=== PATIENT | female | born 1970 | race Caucasian/White ===

== ENCOUNTER 2022-02-19 11:16 | Outpatient (CLI) | payer OTHER, SELFPAY ==
[2022-02-19 21:46] LABS: Alanine Aminotransferase* 12 U/L (4-35); Albumin* 4.6 g/dL (3.3-5.0); Alkaline Phosphatase* 52 U/L (40-150); Aspartate Amino Transferase* 21 U/L (12-35); Bilirubin Total* 0.5 mg/dL (0.1-1.5); Blood Urea Nitrogen* 17 mg/dL (7-30); Calcium* 9.6 mg/dL (8.4-10.6); Carbon Dioxide* 31 mmol/L (20-32); Chloride* 100 mmol/L (96-114); Creatinine* 0.8 mg/dL (0.5-1.5); Estimated Glomerular Filt Rate 90 ml/min; Glucose* 66 mg/dL (60-115); Percent Iron Saturation 27 % (20-50); Potassium* 4.6 mmol/L (3.6-5.1); Sodium* 138 mmol/L (135-149); Total Iron Binding Capacity 360 ug/dL (265-497); Total Protein* 7.5 g/dL (6.0-8.3)
[2022-02-19 22:04] LABS: Iron* 98 ug/dL (37-170)
[2022-02-19 22:05] LABS: TSH With Reflex to FT4* 0.784 uIU/mL (0.270-4.200)
== END 2022-02-19 11:17 | disposition home or self-care (01) ==
PROVIDERS: PCP Physician Assistant Medical; Visit Provider Physician Assistant Medical
DX: Z01.419 Encounter for gynecological examination (general) (routine) without abnormal findings (principal); D64.9 Anemia, unspecified; R53.83 Other fatigue; D25.9 Leiomyoma of uterus, unspecified
CPT/HCPCS: 80053; 83540; 83550; 84443

== ENCOUNTER 2022-02-26 16:05 | Outpatient (CLI) | payer OTHER, SELFPAY ==
--- NOTE | 2022-02-26 16:00 | CRLHL7_ITS ---
For Patients: As a result of the Century Cures Act, medical imaging exams and procedure reports are released immediately into your electronic medical record. You may view this report before your referring provider. If you have questions, please contact your health care provider. INDICATION: History of fibroid TECHNIQUE: Ultrasound pelvis transabdominal and transvaginal for better assessment or to better visualize the endometrium. Real time sonographic images with Spectral and color Doppler imaging of the ovaries were obtained. COMPARISON: None FINDINGS: Uterus: 12.7 centimeter x 10.4 centimeter. Normal echotexture of the myometrium. 8.3 centimeter x 6.1 centimeter x 6.8 centimeter left uterine fibroid. Endometrium: Transvaginal imaging was performed to better evaluate the endometrium. 1.9 centimeter in thickness. No sign of endometrial mass or fluid. Right ovary: 3.5 centimeter x 1.5 centimeter x 2.2 centimeter. No ovarian or adnexal masses. Normal arterial and venous blood flow. Left ovary: 3.5 centimeter x 2.3 centimeter x 1.7 centimeter. No ovarian or adnexal masses. Normal arterial and venous blood flow. Cul-de-sac: No significant free fluid. IMPRESSION: 0.3 centimeter x 6.1 centimeter x 6.8 centimeter left uterine fibroid. This displaces the endometrium to the right. Medial 1.9 centimeters Dictated by Keshawn Tolentino MD @ 02/26/2022 5:41:36 PM (Electronically Signed)
== END 2022-02-26 16:06 | disposition home or self-care (01) ==
PROVIDERS: PCP Physician Assistant Medical; Visit Provider Physician Assistant Medical
DX: D25.9 Leiomyoma of uterus, unspecified (principal)
CPT/HCPCS: 76830; 76856

== ENCOUNTER 2022-06-11 09:27 | Outpatient (CLI) | payer OTHER, SELFPAY ==
[2022-06-11 16:37] LABS: Magnesium* 2.2 mg/dL (1.5-2.6)
[2022-06-11 17:07] LABS: Ferritin* 14.6 ng/mL (11.1-264.0)
[2022-06-11 17:20] LABS: Vitamin B12* 577 pg/mL (243-894)
== END 2022-06-11 09:28 | disposition home or self-care (01) ==
PROVIDERS: PCP Physician Assistant Medical; Visit Provider Physician Assistant Medical
DX: Z01.818 Encounter for other preprocedural examination (principal); R53.83 Other fatigue; D64.9 Anemia, unspecified
CPT/HCPCS: 82607; 82728; 83735

== ENCOUNTER 2022-07-01 14:54 | Inpatient (IN) | payer OTHER, SELFPAY ==
[2022-06-30] VITALS (19 sets, daily range): BP systolic 107–157; BP diastolic 61–88; PULSE 59–99; RESP 16–18; TEMP 36.3–37.4; O2SAT 96–100; BMI 26.1
[2022-06-30 07:48] LABS: Ur HCG Qualitative* Negative (Negative)
[2022-06-30] MEDS: LACTATED RINGERS 1000 ML 1,000 ML 100 ML IV ×2 (08:00→12:22)
[2022-06-30] MEDS: SODIUM CHLORIDE 0.9 % (FLUSH) 10 ML SYRINGE IVF (08:00)
[2022-06-30 08:25] LABS: Hemoglobin* 13.3 gm/dL (12.0-16.0)
[2022-06-30 08:50] LABS: Creatinine* 0.7 mg/dL (0.5-1.5); Est. Creatinine Clearance* 90.01; Estimated Glomerular Filt Rate 105 ml/min
--- NOTE | 2022-06-30 11:13 | P.PCN_ITS ---
Procedure Note Time Seen by Provider: 11:13 Date Seen: 06/30/22 Date of procedure: 06/30/22 Will [facility] bill your pro fee for this procedure?: Yes Procedure: production assistant op note: Preoperative diagnosis: 51-year-old with menorrhagia and uterine fibroids Postoperative diagnosis: Same Procedure: total abdominal hysterectomy/ bilateral salpingectomy /right ovarian cystectomy/diagnostic cystoscopy. Operative note: I was asked to assist Dr. Felicitas Nugent with the patient's surgery. I aided in dissection, visualization, and obtaining hemostasis. Please see Dr. Nugent's note for complete details. Anesthesia: GETA Surgeon: Mavis Sultana MD Pathology: specimen obtained, sent to pathology
--- NOTE | 2022-06-30 11:21 | W.PM.NB ---
Nerve Block Nerve Block Time Seen by Provider: 08:39 Date Seen: 06/30/22 Type of block requested by surgeon for post-operative analgesia: TAP Side: bilateral Time out performed: Yes Verification of patient name: Yes Verification of date of : Yes Site marking: site marked Name of person performing procedure: Benjamín Continuous monitoring Was continuous monitoring of O2 sat, B/P, traffic monitor specialist, recorded every 15 minutes?: Yes Procedure Checklist: sterile prep, needles and gloves Ultrasound guided. Images saved: Yes Medications given in 5ml increments after negative aspiration: Marcaine %: 0.25 mL: 30 Needle gauge: 20 and Exparel mL: 10 Patient tolerated procedure well: Yes Additional comments: Needle noted adjacent to nerve Block Charges Block Charge (with Pro Fee): TAP Bilateral Use of Ultrasound Machine for Block: Yes- US Guidance/pain block
--- NOTE | 2022-06-30 11:22 | W.ANESCHARGE ---
Anesthesia Charges Start Date/Time Anesthesia Start Date: 06/30/22 Anesthesia Start Time: 08:28 Stop Date/Time Anesthesia Stop Date: 06/30/22 Anesthesia Stop Time: 11:46 Summary Emergency: No
--- NOTE | 2022-06-30 11:31 | P.GYNPRC_ITS ---
Procedure Note Date Seen: 06/30/22 Procedure Details: PREOPERATIVE DIAGNOSIS: Abnormal uterine bleeding-Leiomyoma, pelvic pain. POSTOPERATIVE DIAGNOSIS: Same. NAME OF PROCEDURE: Total abdominal hysterectomy. Bilateral salpingectomies. Right ovarian cystectomy. WINDOW SHADE CLOTH SEWER: Dr. Sultana. ANESTHESIA: General endotracheal. COMPLICATIONS: None. ESTIMATED BLOOD LOSS: 150 cc. DRAINS: Varela to gravity. FINDINGS: Uterus of about 13 weeks, irregular in contour due to leiomyoma. Largest fibroid on the posterior fundal area measuring about 4-5cm. Right fallopian tube with a small paratubal cyst, grossly normal. Right ovary of about4-5cm with a 2-3cm hemorrhagic cyst. Left fallopian tube and ovary grossly normal.Bladder peritoneum thick adhesions to the lower uterine segment mostly on the right side. Grossly normal intestines and appendix. Cystoscopy findings x : Intact bladder w/o evidence of suture material, bilateral ureteral jets seen. PROCEDURE: After obtaining informed consent, the patient was taken to the operating room where general anesthesia was obtained without difficulty. She was prepared and draped in the normal sterile fashion in the dorsal lithotomy position. A Varela catheter was inserted sterilely into the bladder. A Pfannenstiel skin incision was made with a scalpel. This incision was carried down to the underlying layer of fascia with the Bovie and scalpel. The fascia was incised in the midline and the incision extended laterally. The superior and inferior aspects of the fascial incision were grasped with Lili clamps and the underlying rectus muscles dissected off sharply. The rectus muscles were in the midline. The underlying peritoneum was identified and entered bluntly. The peritoneal incision was extended superiorly and inferiorly with good visualization of the bladder. The patient was placed in some mild Trendelenburg positioning. The bowels were packed cephalad using a large moistened laparotomy sponge. The Shahid O retractor was placed in the incision. This provided excellent visualization of the pelvis. The pelvis was inspected with the findings noted above. Shikha clamps were placed at the cornua bilaterally for traction. Both ureters were identified along their courses within the pelvic sidewall. The right fallopian tube was elevated with Rgazyna clamps. Utilizing LigaSure Impact device the mesosalpinx was sequentially clamped, coagulated and cut until cornual side. This was sent to pathology. The right ovary was inspected and decision was made to remove cystic structure. Utilizing Bovie cautery the cyst wall was opened which revealed clear fluid and evidence of clot, after drainage then the cyst capsule was removed utilizing the LigaSure Impact device. The cyst wall was entirely removed and the ovarian edges were united utilizing Vicryl 3-0 in a continuos interlocking fashion until hemostasis was achieved. Cyst wall was sent to pathology.The right round ligament was identified and with Vicryl 0 it was suture ligated. Then utilizing the LigaSure Impact device the medial aspect of the round ligament was clamped, coagulated and cut. The anterior leaf of the broad ligament was opened to the midline from the right side. The right ovarian ligament was then isolated, clamped, coagulated and cut across with LigaSure Impact device. Hemostasis was observed. The uterine vessels were skeletonized on the right side. The vessels were clamped across with LigaSure Impact device. Excellent hemostasis was obtained. Attention was then turned to the left side. The left fallopian tube was elevated with [place] clamps. Utilizing LigaSure Impact device the mesosalpinx was sequentially clamped, coagulated and cut until cornual side. This was sent to pathology. The left round ligament was identified and with Vicryl 0 it was suture ligated. Then utilizing the LigaSure Impact device the medial aspect of the round ligament was clamped, coagulated and cut. The anterior leaf of the broad ligament was opened to the midline from the left side. The left ovarian ligament was then isolated, clamped, coagulated and cut across with LigaSure Impact device. Hemostasis was observed. The uterine vessels were skeletonized on the left side. The vessels were clamped across with LigaSure Impact device. Excellent hemostasis was obtained. The remaining cardinal and uterosacral ligament attachments on both sides were clamped with straight Brian clamps adjacent to the lower uterine segment and cervix, transected and suture ligated with 0 Vicryl. Excellent hemostasis was obtained. Two Brian clamps were placed across the vaginal cuff angles. The uterus with attached cervix was then transected and passed off the field. The vaginal cuff angles were fixed with Brian stitches of 0 Vicryl. The intervening vaginal cuff was closed with [id number] sutures of 0 Vicryl. The abdomen and pelvis were then copiously irrigated. Small bleeding vessels were isolated with DeBakey clamps and cauterized for hemostasis. Devonte was placed over raw tissue edges for additional hemostasis. Preparations were then made for cystoscopy. Fluorescein was administered intravenously along with the IV fluids.The Varela catheter was removed. The patient was flattened out. Cystoscopy was performed using sterile normal saline as distending medium. The bladder was carefully inspected and noted to be free of filling defects or suture material. Both ureteral orifices were easily visualized and fluorescein tinged urine jets were noted from both sides. The cystoscope was then removed. The Varela catheter was replaced into the bladder. Re evaluation of the surgical area revealed bleeding from the peritoneum of the right side uterine stumps and this was oversewn with Chromic 2-0 in a continuos interlocking fashion, hemostasis secured. Some additional bleeding was seen from the bladder pillars and these areas were coagulated with Bovie and hemostasis was secured. Cystoscopy was repeated as above with normal findings and normal efflux of urine jets on the right side/ureter. All laparotomy sponges and instruments were then removed. The subfascial tissues were carefully inspected and hemostasis assured. The fascia was reapproximated in a running fashion with a looped 0 Vicryl suture. The s ubcutaneous tissues were copiously irrigated and hemostasis assured. The subcutaneous adipose layer was reapproximated with interrupted sutures of 3-0 Vicryl. The skin was closed in a subcuticular fashion with 4-0 Monocryl. LiquiBand and a dressing were applied. The patient tolerated the procedure well. Sponge, lap, needle, instrument counts were reported as correct x2. The patient was taken to recovery room awake and in stable condition. She received 2 g of IV Ancef preoperatively. The uterus was weighed at the conclusion of the procedure, weight was 374g. PATHOLOGY SPECIMEN(S): Uterus, bilateral fallopian tubes, right ovarian cyst. Time spent operating 2 hr 30 minutes approximately.
[2022-06-30] MEDS: fentaNYL 100 MCG/2 ML inj 50 MCG IVP ×2 (11:48→12:10)
[2022-06-30] MEDS: KETOROLAC 30 MG/ML inj IVP ×2 (13:14→19:20)
[2022-06-30] MEDS: HYDROmorphone 0.5 mg/0.5 ml inj 0.2 MG IVP ×2 (14:27→22:27)
--- NOTE | 2022-06-30 14:44 | PC.NURSE ---
RN aston Nugent MD at 1356 d/t pts pain. RN reported that the pt was rating her pain at 6/10 and explained it as pressure near her bladder. RN states that catheter has been draining well and been emptied. RN reports that pt states that from her incision bandage to her umbilicus she dose not feel touch but lower than the bandage she does. RN states that the pt got a dose of Toradol at 1314 and there has been no improvement on her pain with that. RN states that pt got 2 doses of 50mcg Fentanyl in PACU and that also did not decrease her pain level. RN states that the fentanyl and hydromorphone orders are PACU orders in pts MAR. RN asked MD if there is something that the pt could get to help the pain decrease. MD states that she is coming down to evaluate the pt. and that a plan of care will be made at that time.
[2022-06-30] MEDS: OXYCODONE 5 MG TABLET PO ×2 (15:22→20:07)
[2022-06-30] MEDS: ACETAMINOPHEN 500 MG TABLET 1000 MG PO ×2 (15:25→21:38)
--- NOTE | 2022-06-30 16:55 | PC.NURSE ---
RN updated Raffi TALLEY at 1549 about pt. status. RN states that the VS that were taken at 1528 was BP of 107/61 and pulse of 99. RN states that the prior assessment at 1425 BP was 138/80 and the pulse was 77. RN states that masters has decreased from 8 to 6 with the Dilaudid. RN states that pt just received 1000mg Tylenol and 10mg oxycodone. RN states that pt was tolerating PO liquid and food well so RN wanted to try those medications to try and get pain level down more. RN states that pt was not dizzy, lightheaded, or nauseous. Raffi TALLEY orders for a 1800 Hgb to be drawn. RN verifies with MD that MD is okay with VS trend. RN states that when she received pt from PACU BP was high 150s over 80s and that there was a steady decrease in BPs. RN states that pt reports her baseline BP of being 130s. RN also states that urine output has been good. RN states that catheter was emptied at 1320 with 800cc and at 1550 with 225cc. states that the VS change is most likely due to pain but the Hgb at 1800 will give more reassurance. RN states to that pt is tolerating PO fluids but asks if MD would like another bag of LR given at 125ml/hr. states IV can be saline locked and to update provider with Hgb results.
[2022-06-30 18:12] LABS: Hemoglobin* 13.5 gm/dL (12.0-16.0)
[2022-06-30] MEDS: DOCUSATE SODIUM 100 MG CAPSULE PO (18:23)
--- NOTE | 2022-06-30 18:51 | PC.NURSE ---
RN updated Raffi TALLEY that Hgb at 1800 was 13.5mg/dL. RN states that pt got up and dangled at the bedside. RN states that pt stood and pivoted back up towards the top of the bed. RN states that pt stated that movement did feel good. RN states that pain has been sitting at 5/10. stated that she appreciated the update.
[2022-07-01] VITALS (8 sets, daily range): BP systolic 105–117; BP diastolic 55–74; PULSE 65–79; RESP 16–18; TEMP 36.4–37; O2SAT 97–98
[2022-07-01] MEDS: OXYCODONE 5 MG TABLET PO ×5 (00:11→20:03)
[2022-07-01] MEDS: IBUPROFEN 600 MG TABLET PO ×4 (01:09→20:03)
[2022-07-01] MEDS: ACETAMINOPHEN 500 MG TABLET 1000 MG PO ×4 (03:44→22:45)
[2022-07-01 06:18] LABS: Hemoglobin* 11.8 gm/dL (12.0-16.0)
[2022-07-01 06:34] LABS: Creatinine* 0.7 mg/dL (0.5-1.5); Est. Creatinine Clearance* 90.01; Estimated Glomerular Filt Rate 105 ml/min
[2022-07-01] MEDS: DOCUSATE SODIUM 100 MG CAPSULE PO ×2 (07:28→20:12)
--- NOTE | 2022-07-01 08:54 | P.GYNPN_ITS ---
LITHOGRAPHIC STRIPPER - A/P Postoperative Procedures: Procedures Operation Date: 06/30/22 08:30 Actual Procedure Side Surgeon p Total Abdominal Hysterectomy, Right Ovarian cystectomy, Bilateral Salpingectomy, Cystoscopy Felicitas Sandy MD Postoperative day: 1 Postoperative status: doing well Postoperative plan: routine post-op care, ambulate, advance diet and other (Improving, pain well controlled, work on ambulation today. Plan to discharge home tomorrow if continued to do well. ) Time Spent With Patient Time: Total time spent is greater than 50% in coordination of care (as documented) at patient's floor/unit and/or counseling patient: Time with patient: less than 15 minutes LITHOGRAPHIC STRIPPER- PN:Subj Post-Op Subjective Date Seen: 07/01/22 Post Operative Details: Post-operative day number 1: status post total abdominal hysterectomy, bilateral salpingectomy, right ovarian cystectomy Subjective: patient reports feeling better, patient is tolerating oral intake and passing flatus LITHOGRAPHIC STRIPPER-PN: Obj Exam Physical Exam: Vital signs: Temp Pulse Resp BP Pulse Ox O2 Del Method 98.6 F 67 16 113/70 97 07/01/22 07:30 07/01/22 07:30 07/01/22 07:30 07/01/22 07:30 07/01/22 07:30 07/01/22 07:30 Narrative: VITAL SIGNS: As noted above. GENERAL APPEARANCE: Alert, cooperative female in no acute distress. MOOD & AFFECT: Normal CHEST: CTAx 2, RRR ABDOMEN: Soft, mildly distended and nontender.Positive bowel sounds. : No spotting. EXTREMITIES: SCD in place. Varela catheter clear urine normal output. Urinary Catheter Management: Urethral: Cath placed during this visit: yes Urethral indwelling: Yes Reason for continuing: surgical procedure Insertion date: 06/30/22 Insertion time: 08:51 LITHOGRAPHIC STRIPPER - PN: Obj Data Labs Labs: Laboratory Results - last 24 hr 06/30/22 06/30/22 07/01/22 08:16 18:08 06:00 Hgb 13.5 Creatinine 0.7 Estimated Creat Clear 90.01 Estimated GFR 105 Blood Type A Positive Antibody Screen NEGATIVE 07/01/22 06:00 Hgb 11.8 L Creatinine Estimated Creat Clear Estimated GFR Blood Type Antibody Screen
[2022-07-01] MEDS: SIMETHICONE 80 MG TAB.CHEW 160 MG PO (09:08)
[2022-07-01 15:15] LABS: Ferritin* 27.9 ng/mL (11.1-264.0)
[2022-07-02 01:15] VITALS: BP 109/71; PULSE 63; RESP 16; TEMP 36.9; O2SAT 96
[2022-07-02] MEDS: OXYCODONE 5 MG TABLET PO ×3 (01:24→10:01)
[2022-07-02] MEDS: IBUPROFEN 600 MG TABLET PO ×2 (01:25→07:24)
[2022-07-02 04:35] VITALS: PULSE 63; RESP 16
[2022-07-02 04:37] VITALS: BP 126/80; PULSE 65; RESP 16; TEMP 36.8; O2SAT 96
[2022-07-02] MEDS: ACETAMINOPHEN 500 MG TABLET 1000 MG PO ×2 (04:45→11:27)
[2022-07-02 07:28] VITALS: BP 114/77; PULSE 67; RESP 16; TEMP 36.6; O2SAT 95
--- NOTE | 2022-07-02 08:18 | P.DS_ITS ---
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 Indication for surgery: abnormal uterine bleeding, pelvic pain . Intraoperative findings were notable for myomatous uterus of about 13 weeks, thick adhesions of bladder to the lower uterine segment, right hemorrhagic ovarian cyst. She had an uncomplicated surgery. Postoperative course has been uneventful. Vitals have been stable. She has remained afebrile. Today, on postoperative day 2, she reports the pain is well controlled. She has been able to ambulate Without difficulty. She is tolerating regular diet. She is passing flatus. Varela catheter has been removed, and she is voiding without difficulty. Time Spent with Patient Time attestation: Total time spent providing and/or coordinating discharge services: Time spent: Less than 30 minutes EXTRUSION DIE TEMPLATE MAKER - Exam Physical Exam: Vital signs: Temp Pulse Resp BP Pulse Ox O2 Del Method 98 F 67 16 114/77 95 07/02/22 07:28 07/02/22 07:28 07/02/22 07:28 07/02/22 07:28 07/02/22 07:28 07/02/22 07:28 Narrative: VITAL SIGNS: As noted above. GENERAL APPEARANCE: Alert, cooperative female in no acute distress. MOOD & AFFECT: Normal. ABDOMEN: Soft, mildly distended, appropriately tender to palpation. Incision healing well, no surrounding erythema, induration or abnormal discharge. EXTREMITIES: Nonedematous. Well perfused. Nontender. EXTRUSION DIE TEMPLATE MAKER - DS: Data Data Completed and Pending Labs on day of discharge: Labs from last 24 hours 07/01/22 13:45 Ferritin 27.9 Procedures Procedures: Procedures Operation Date: 06/30/22 08:30 Actual Procedure Side Surgeon p Total Abdominal Hysterectomy, Right Ovarian cystectomy, Bilateral Salpingectomy, Cystoscopy Felicitas Sandy MD Discharge Plan Discharge Disposition: Home, Self-Care Date of Admission: 07/01/22 14:54 Attending Provider on Discharge: Felicitas Sandy Primary Care Provider: Meena Larson Condition: Stable Anticipated Discharge Date/Time: 07/02/22 08:27 Discharge Medications: New acetaminophen 500 mg Tablet 1,000 mg PO Q6H PRN (Reason: Pain) Qty: 30 0RF docusate sodium 100 mg Capsule 100 mg PO BID PRN (Reason: Constipation) Qty: 30 0RF ibuprofen 600 mg Tablet 600 mg PO Q6H Qty: 30 0RF oxycodone 5 mg Tablet 5 - 10 mg PO Q4-6H PRN (Reason: Pain) Qty: 20 0RF Continued ferrous sulfate 325 mg (65 mg iron) tablet PO DAILY Xao Young Diamond PO Discontinued peg 3350-electrolytes [Golytely] 236-22.74-6.74 -5.86 gram recon soln 240 ml PO Q10M Qty: 4000 0RF Rx Instructions: until fecal effluent is clear Discharge Orders: Discharge Order (Routine); Ordered 07/02/22 Ordered By: Felicitas Sandy Patient Education: Hysterectomy (DC) Activity Level: No strenuous activity and No Weight Bearing Activity Detail: Nothing vaginally for 6 weeks Discharge Diet: Regular Follow Up Appointments: Meena Larson, PA-C [Primary Care Provider] - Felicitas Sandy MD [Staff Physician] - Forms: MyHealth Info Instructions Discharge Comments: Follow up at [facility] in 2 weeks
[2022-07-02] MEDS: DOCUSATE SODIUM 100 MG CAPSULE PO (10:01)
== END 2022-07-02 11:40 | disposition home or self-care (01) | DRG 742 ==
LOC: OR 15:10 → OB 15:10
PROVIDERS: Admitting Provider Obstetrics & Gynecology; PCP Physician Assistant Medical; Visit Provider Obstetrics & Gynecology
PROC: 0UT94ZZ Resection of Uterus, Percutaneous Endoscopic Approach (ICD-10-PCS; CPT 52000; principal; 2022-06-30 08:30)
DX: N92.0 Excessive and frequent menstruation with regular cycle (principal); D68.61 Antiphospholipid syndrome; D25.9 Leiomyoma of uterus, unspecified; N83.201 Unspecified ovarian cyst, right side; R10.2 Pelvic and perineal pain; N83.8 Other noninflammatory disorders of ovary, fallopian tube and broad ligament; D64.9 Anemia, unspecified; N73.6 Female pelvic peritoneal adhesions (postinfective); R25.2 Cramp and spasm
CPT/HCPCS: 00840; 36415; 64488; 76942; 81025; 82565; 82728; 85018; 86850; 86900; 86901; 88305; 88307; A9270; C9290; J1100; J1170; J1885; J2250; J2405; J2704; J3010; J3490; J7120

== ENCOUNTER 2022-07-14 10:06 | Outpatient (CLI) | payer OTHER, SELFPAY ==
[2022-07-14 13:01] LABS: Cholesterol* 229 mg/dL (90-199); Triglycerides* 164 mg/dL (40-149)
[2022-07-14 13:02] LABS: HDL Cholesterol* 75 mg/dL (>=50); LDL Cholesterol Calculated 121 mg/dL (<100)
[2022-07-16 03:26] LABS: Iron* 86 ug/dL (37-170)
[2022-07-16 03:35] LABS: Percent Iron Saturation 23 % (20-50); Total Iron Binding Capacity 372 ug/dL (265-497)
== END 2022-07-14 10:07 | disposition home or self-care (01) ==
PROVIDERS: PCP Physician Assistant Medical; Visit Provider Obstetrics & Gynecology
DX: D64.9 Anemia, unspecified (principal); R53.83 Other fatigue; N93.9 Abnormal uterine and vaginal bleeding, unspecified; Z13.6 Encounter for screening for cardiovascular disorders
CPT/HCPCS: 80061; 83540; 83550

== ENCOUNTER 2022-08-20 13:38 | Outpatient (CLI) | payer OTHER, SELFPAY | END 2022-08-20 13:39 | disposition home or self-care (01) | LOC: NFLDREF 13:39 | PROVIDERS: PCP Physician Assistant Medical; Visit Provider Obstetrics & Gynecology | DX: Z98.890 Other specified postprocedural states (principal) | CPT/HCPCS: 87086 ==

== ENCOUNTER 2023-07-22 08:04 | Outpatient (CLI) | payer OTHER, SELFPAY ==
--- OUTSIDE RECORDS SUMMARY | 2023-07-23 05:58 | XMS_ITS | Clinical Summary ---
Author Name Unknown Organization [facility] Address [address] [place] [id number] Care Team Providers Care Solar Sales Rep Name Role Phone Kelly Hercules MD Primary Care Provider Allergies Active Allergy Reactions Criticality Noted Date Comments Garlic 02/22/2018 Onion Garlic Stomach locks up and rash in between fingers Red Dye 11/04/2015 Red dye in benadryl Medications Medication Sig Dispensed Refills Start Date End Date Status UNABLE TO FIND MEDICATION NAME: tongan herbs 0 Active ferrous gluconate (FERGON) 324 (38 Fe) MG tabletIndications:L ow ferritin Take 1 tablet (324 mg) by mouth 2 times daily (with meals) 60 tablet 5 04/25/2020 Active Active Problems Problem Noted Date Diagnosed Date Thyroiditis 05/17/2020 Elevated glucose 05/17/2020 Uterine leiomyoma, unspecified location 05/17/20 20 Low ferritin 05/17/2020 Palpitations 05/17/2020 Thyroid nodule 06/13/2019 Diarrhea, unspecified type 02/22/2018 Pelvic pain in female 02/22/2018 Anti-phospholipid antibody syndrome (H24) 2015 Psoriasis 11/04/2015 Overview: Hands, worse with citrus Immunizations Name Administration Dates Next Due Flu, Unspecified 03/25/2020 Influenza (IIV3) PF 03/26/2014 Influenza Vaccine >6 months,quad, PF 04/12/2019, 04/14/2018 TDAP Vaccine (Adacel) 02/22/2018 Family History Medical History Relation Comments Hypertension Brother 1 Alcoholism Father Suicide Father Suicide Maternal Grandfather Blood Disease Maternal Grandmother Factor 5 alfie taylor Colon Cancer Maternal Grandmother Blood Disease Maternal Uncle Factor 5 leiden Alcoholism Mother Bipolar Disorder Mother Bladder Cancer Mother Depression Mother Other Cancer Mother bladder Eye Surgery No family hx of Glaucoma No family hx of Macular Degeneration No family hx of Relation Status Comments Brother 1 Alive Brother 2 Alive Daughter 1 Alive Daughter 2 Alive Father Maternal Grandfather Maternal Grandmother Maternal Uncle Alive Mother Alive Paternal Grandfather Paternal Grandmother Social History Tobacco Use Types Packs/Day Years Used Date Smoking Tobacco: Former Smokeless Tobacco: Never Alcohol Use Standard Drinks/Week Comments Yes 0 (1 standard drink = 0.6 oz pur e alcohol) 2 glasses of wine per week PHQ-2 Answer Date Recorded PHQ-2 Score 0 05/31/2019 Adolescent Education Answer Date Record ed Getting School Help Needed Not on file 03/29 Sex and Gender Information Value Date Recorded Sex Assigned at Female 03/25/2021 6:57 AM CDT Gender Identity Female 03/25/2021 6:57 AM CDT Sexual Orientation Not on file Last Filed Vital Signs Vital Sign Reading Time Taken Comments Blood Pressure 151/102 06/28/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 Pulse 65 06/28/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 Temperature 36.3 ??C (97.4 ??F) 06/28/2020 1 0:34 AM [employer] Respiratory Rate 16 06/28/2020 10:3 4 AM [employer] Oxygen Saturation 100% 06/28/2020 10: 34 AM [employer] Inhaled Oxygen Concentration - - Weight 71.2 kg (156 lb 14.4 oz) 020 10:38 AM [employer] Height 168.9 cm (5' 6.5) 06/29/2019 9:36 AM [employer] Body Mass Index 24.94 06/29/2019 9:36 AM SHE[employer]OCK [employer]ER Plan of Treatment Health Maintenance Due Date Last Done Comments ADVANCE CARE PLANNING 1971 CT COLONOGRAPHY 1971 FIT 1971 FLEX SIG 1971 HEPATITIS B IMMUNIZATION (1 of 3 - 3-dose series) 1971 sDNA (Cologuard) 1970 YEARLY PREVENTIVE VISIT 04/14/2019 04/14/2018 ANNUAL REVIEW OF HM ORDERS 04/25/2021 04/25/2020 LUNG CANCER SCREENING 10/24/2021 ZOSTER IMMUNIZATION (1 of 2) 10/24/2021 COVID-19 Vaccine (3 - season) 2023 06/21/2020, 06/04/2020 INFLUENZA VACCINE (#1) 2023 , 03/25/2020, 04/12/2019, Additional history exists LIPID 02/22/2023 02/22/2018 MAMMO SCREENING 03/29/2023 03/29/2021, 04/14/2018 HPV TEST 04/14/2023 04/14/2018, 06/2017, 11/04/2015, Additional history exists PAP 04/14/2023 04/14/2018, 11/04/2015 GLUCOSE 04/25/2023 04/25/2020, 05/14, 02/16/2019, Additional history exists PHQ-2 (once per calendar year) 2023 04/25/2020, 05/31/2019, 01/03/2019, Additional history exists DTAP/TDAP/TD IMMUNIZATION (2 - Td or Tdap) 02/23/2028 02/22/2018 COLONOSCOPY 06/29/2029 06/29/2019, 06/29/2019 COLORECTAL CANCER SCREENING 06/29/2029 HEPATITIS C SCREENING Completed 04/25/2020 HIV SCREENING Completed 04/25/2020 HPV IMMUNIZATION Aged Out No longer e ligible based on patient's age to complete this topic IPV IMMUNIZATION Aged Out No longer e ligible based on patient's age to complete this topic MENINGITIS IMMUNIZATION Aged Out No l onger eligible based on patient's age to complete this topic Pneumococcal Vaccine: Pediatrics (0 to 5 Years) and At-Risk Patients (6 to 64 Years) Aged Out No longer eligible based on patient's age to complete this topic RSV MONOCLONAL ANTIBODY Aged Out No l onger eligible based on patient's age to complete this topic Care Teams Solar Sales Rep Relationship Specialty Start Date End Date Kelly Hercules MD PCP - General Family Practice 11/04/15
--- OUTSIDE RECORDS SUMMARY | 2023-07-23 05:58 | XMS_ITS | Encounter Summary ---
Author Name Unknown Organization [place] Address [address] [place] [address]. [place] [address] Care Team Providers Care Delineator Name Role Phone Kelly Hercules MD Primary Care Provider Kelly Hercules MD Unavailable [phone] Lucy Luis MD Unavailable [phone] Kelly Hercules MD Unavailable Dior Loya OD Unavailable Kelly Hercules MD Unavailable [phone] Reason for Visit * Reason Onset Date Comments MyChart Communication 12/09/2019 Encounter Details Date Type Department Care Team (Late st Contact Info) Description 12/09/2019 [facility] Advice [address], [address] [place] [address] [place] [address] [address] [place], [place] [id number] MyChart Communication Social History Tobacco Use Types Packs/Day Years Used Date Smoking Tobacco: Former Smokeless Tobacco: Never Alcohol Use Standard Drinks/Week Comments Yes 0 (1 standard drink = 0.6 oz pur e alcohol) 2 glasses of wine per week PHQ-2 Answer Date Recorded PHQ-2 Score 0 05/31/2019 Sex and Gender Information Value Date Recorded Sex Assigned at Female 03/25/2021 6:57 AM CDT Gender Identity Female 03/25/2021 6:57 AM CDT Sexual Orientation Not on file documented as of this encounter Plan of Treatment Not on file documented as of this encounter Visit Diagnoses Not on filedocumented in this encounter Additional Health Concerns Infection Onset Date Last Indicated Resolved Time Rule Out COVID-19 01/28/2020 01/28/2020 01/29/2020 9:31 PM CDT documented as of this encounter Care Teams Delineator Relationship Specialty Start Date End Date Kelly Hercules MD PCP - General Family Practice 11/04/15 [place] [address] [address] [address] Assigned PCP 05/05/20 05/29/22 Lucy Luis MD [address] [place] [address] [address] [place] [address] Assigned Endocrinology Provider 04/05/20 12/14/20 [place] [address] [address] [address] Assigned PCP 05/28/19 05/04/20 Dior Loya OD [address]305 [facility] [place] [address] Assigned Surgical Provider 05/04/21 [place] [address] [address] [address] Assigned PCP 08/08/22 04/30/23 documented as of this encounter
--- OUTSIDE RECORDS SUMMARY | 2023-07-23 05:58 | XMS_ITS | Encounter Summary ---
Author Name Unknown Organization [place] Address [address] [place] [address] Care Team Providers Care Emergency Crew Supervisor Name Role Phone Kelly Hercules MD Primary Care Provider Laura Collins PA-C Unavailable Kelly Hercules MD Unavailable [phone] Lucy Luis MD Unavailable [phone] Kelly Hercules MD Unavailable [phone] Dior Loya OD Unavailable [phone] Kelly Hercules MD Unavailable [phone] Encounter Details Date Type Department Care Team (Late st Contact Info) Description 04/17/2019 MyC Medical Advice [facility] [address] [place] [phone] Venecia Kellogg, SCREEN EXAMINER CHEMICAL PLANT MANAGER Social History Tobacco Use Types Packs/Day Years Used Date Smoking Tobacco: Former Smokeless Tobacco: Never Alcohol Use Standard Drinks/Week Comments Yes 0 (1 standard drink = 0.6 oz pur e alcohol) 2 glasses of wine per week PHQ-2 Answer Date Recorded PHQ-2 Score 0 01/03/2019 Sex and Gender Information Value Date Recorded [...] documented as of this encounter Care Teams Emergency Crew Supervisor Relationship Specialty Start Date End Date Kelly Hercules MD PCP - General Family Practice 11/04/15 Laura Collins PA-C [address] [place] [address] Assigned PCP 02/26/19 05/27/19 [place] [address] [place] [address] Assigned PCP 05/05/20 05/29/22 Lucy Luis MD [address] [place] [address] Assigned Endocrinology Provider 04/05/20 12/14/20 [place] [address] [address] [place] [address] Assigned PCP 05/28/19 05/04/20 Dior Loya OD [address] [facility] [place] [address] Assigned Surgical Provider 05/04/21 [place] [address] [address] [address] Assigned PCP 08/08/22 04/30/23 documented as of this encounter
--- OUTSIDE RECORDS SUMMARY | 2023-07-23 05:58 | XMS_ITS | Referral Summary ---
Author Name Unknown Organization [place] Address [address] [place] [address] Care Team Providers Care Surveillance Monitor Name Role Phone Kelly Hercules MD Primary Care Provider Allergies Active Allergy Reactions Criticality Noted Date Comments Garlic 02/22/2018 Onion Garlic Stomach locks up and rash in between fingers Red Dye 11/04/2015 Red dye in benadryl Medications Medication Sig Dispensed Refills Start Date End Date Status UNABLE TO FIND MEDICATION NAME: georgian herbs 0 Active ferrous gluconate (FERGON) 324 [...] PF 04/12/2019, 04/14/2018 TDAP Vaccine (Adacel) 02/22/2018 Social History Tobacco Use Types Packs/Day Years [...] Comments Blood Pressure 151/102 06/28/2020 10:34 AM SILK SCREEN PAINTER Pulse 65 06/28/2020 10:34 AM SILK SCREEN PAINTER Temperature 36.3 ??C (97.4 ??F) 06/28/2020 1 0:34 AM SILK SCREEN PAINTER Respiratory Rate 16 06/28/2020 10:3 4 AM SILK SCREEN PAINTER Oxygen Saturation 100% 06/28/2020 10: 34 AM SILK SCREEN PAINTER Inhaled Oxygen Concentration - - Weight 71.2 kg (156 lb 14.4 oz) 020 10:38 AM SILK SCREEN PAINTER Height 168.9 cm (5' 6.5) 06/29/2019 9:36 AM SILK SCREEN PAINTER Body Mass Index 24.94 06/29/2019 9:36 AM SILK SCREEN PAINTER Plan of Treatment Not on file Care Teams Surveillance Monitor Relationship Specialty Start Date End Date Kelly Hercules MD PCP - General Family Practice 11/04/15
--- OUTSIDE RECORDS SUMMARY | 2023-07-23 05:59 | XMS_ITS | Encounter Summary ---
Author Name Unknown Organization [place] Address [address] [place] [address]. [place] [address] Care Team Providers Care Photonics Technician Name Role Phone Kelly Hercules MD Primary Care Provider Laura Collins PA-C Unavailable Kelly Hercules MD Unavailable [phone] Lucy Luis MD Unavailable Kelly Hercules MD Unavailable Dior Loya OD Unavailable [phone] Kelly Hercules MD Unavailable [phone] Reason for Referral * Consultation (Routine) - Closed Specialty Diagnoses / Procedures Referred By Susana t Referred To Contact Diagnoses Thyroid nodule Laura Collins PA-C [address] [place] [address] [facility] [address] [facility] [address] [place] [phone] Referral ID Status Reason Start Date Expiration Date Visits Re quested Visits Authorized [id number] Closed 03/21/2019 03/20/2020 1 1 Comments Your provider has referred you to: [facility]: [facility] [phone] [email or web address] Please be aware that coverage of these services is subject to the terms and limitations of your health insurance plan. Call member services at your health plan with any benefit or coverage questions. Please bring the following to your appointment: >> Any x-rays, CTs or MRIs which have been performed. Contact the facility where they were done to arrange for supervisor picking crew prior to your scheduled appointment. >> List of current medications >> This referral request >> Any documents/labs given to you for this referral Reason for Visit * Reason Onset Date Comments MyChart Communication 03/21/2019 Encounter Details Date Type Department Care Team (Latest Contact Info) Description 03/21/2019 [facility] [id number] [place] [phone] Laura Collins PA-C [id number] [place] [address] MyChart Communication Social History Tobacco Use Types [...] on file documented as of this encounter Miscellaneous Notes * Telephone Encounter - Asha Womack RN - 03/21/2019 7:17 AM CDT See my chart Asha Womack RN documented in this encounter Plan of Treatment Scheduled Referrals Name Type Priority Associated Diagnoses Orde r Schedule ENDOCRINOLOGY ADULT REFERRAL Referral Routine Thyroid nodule Ordered: 03/21/2019 documented as of this encounter Visit Diagnoses Diagnosis Thyroid nodule- Primary Nontoxic uninodular goiter documented in this encounter Additional Health Concerns Infection Onset Date Last Indicated Resolved Time Rule Out COVID-19 01/28/2020 01/28/2020 01/29/2020 9:31 PM CDT documented as of this encounter Care Teams Photonics Technician Relationship Specialty Start Date End Date Kelly Hercules MD PCP - General Family Practice 11/04/15 Laura Collins PA-C [address] [place] [address] Assigned PCP 02/26/19 05/27/19 [place] [address] [place] [address] Assigned PCP 05/05/20 05/29/22 Lucy Luis MD [address] [address] Assigned Endocrinology Provider 04/05/20 12/14/20 [place] [address] [place] [address] Assigned PCP 05/28/19 05/04/20 Dior Loya OD 3305 [facility] [place] [address] Assigned Surgical Provider 05/04/21 [place] [address] [address] [place] [address] Assigned PCP 08/08/22 04/30/23 documented as of this encounter
--- OUTSIDE RECORDS SUMMARY | 2023-07-23 05:59 | XMS_ITS | Clinical Summary ---
Author Name Unknown Organization [facility] [employer] Address [place], [place] [address] Care Team Providers Care Tunnel Form Placing Supervisor Name Role Phone Pcp, No Primary Care Provider Unavailabl e Allergies No known active allergies Medications Medication Sig Dispensed Refills Start Date End Date Status diclofenac (VOLTAREN) 75 mg delayed-release tabletIndications:Me norrhagia Take 1 tablet by mouth 2 times daily with meals. As needed for menstrual cramps 60 tablet 0 07/17/2014 Active Active Problems Problem Noted Date Diagnosed Date Antiphospholipid antibody syndrome 07/11/2014 Social History Tobacco Use Types Packs/Day Years Used Date Smoking Tobacco: Never Smokeless Tobacco: Never Alcohol Use Standard Drinks/Week Comments Yes 0 (1 standard drink = 0.6 oz pur e alcohol) Sex and Gender Information Value Date Recorded Sex Assigned at Not on file Gender Identity Not on file Sexual Orientation Not on file Obstetrics History Last Filed Vital Signs Vital Sign Reading Time Taken Comments Blood Pressure 125/72 07/11/2014 2:45 PM TECHNICAL SALES ADVISOR Pulse 68 07/11/2014 2:45 PM TECHNICAL SALES ADVISOR Temperature - - Respiratory Rate 16 10/21/2012 4:01 PM CDT Oxygen Saturation - - Inhaled Oxygen Concentration - - Weight 65.5 kg (144 lb 6.4 oz) 07/11/2014 2:45 P M TECHNICAL SALES ADVISOR Height - - Body Mass Index - - Plan of Treatment Health Maintenance Due Date Last Done Comments COVID-19 vaccine series (#1) 04/26/1972 Tdap 10/24/1982 Depression screening for age 12+ 1983 HIV for age 15-65 10/24/1986 BMI (ht and wt on same day) for age 18+ 10/24/1989 Hepatitis C screening for ag e 18-79 10/24/1989 Tetanus booster 1991 Colonoscopy through age 75 10/24/2016 Mammogram for age 45-75 10/24/2016 Lipids for age 45-75 10/22/2017 10/22/2012 Zoster (shingles) series for age 50+ (1 of 2) 10/24/2021 Influenza for age 50-64 02/12/2023 Pap test for age 21-65 03/19/2025 2, 03/19/2022 Pneumococcal series for age 6-64 Aged Out No longer eligible b ased on patient's age to complete this topic Care Teams Tunnel Form Placing Supervisor Relationship Specialty Start Date End Date Pcp, No . PCP - General 10/05/12
--- OUTSIDE RECORDS SUMMARY | 2023-07-23 05:59 | XMS_ITS | Encounter Summary ---
Author Name Unknown Organization [place] Address [address] [place] [address] Care Team Providers Care Senior Manager Mergers & Acquisitions Name Role Phone Kelly Hercules MD Primary Care Provider Kelly Hercules MD Unavailable [phone] Laura Collins PA-C Unavailable Kelly Hercules MD Unavailable Lucy Luis MD Unavailable Kelly Hercules MD Unavailable [phone] Dior Loya OD Unavailable Kelly Hercules MD Unavailable [phone] Encounter Details Date Type Department Care Team (Late st Contact Info) Description 02/16/2019 MyC Medical Advice [facility] [place] [address] [place] [address] Meredith Thomason DO [address] [place] [address] Social History Tobacco Use Types Packs/Day Years [...] documented as of this encounter Care Teams Senior Manager Mergers & Acquisitions Relationship Specialty Start Date End Date Kelly Hercules MD PCP - General Family Practice 11/04/15 [place] [address] [address] [address] Assigned PCP 10/17/15 02/25/19 Laura Collins PA-C [address] [address] [place] [address] Assigned PCP 02/26/19 05/27/19 [place] [address] [address] [address] Assigned PCP 05/05/20 05/29/22 Lucy Luis MD [address] [place] [address] Assigned Endocrinology Provider 04/05/20 12/14/20 [place] [address] [place] [address] Assigned PCP 05/28/19 05/04/20 Dior Loya OD [address]305 [facility] L[place] [address] Assigned Surgical Provider 05/04/21 [place] [address] [place] [address] Assigned PCP 08/08/22 04/30/23 documented as of this encounter
== END 2023-07-22 08:05 | disposition home or self-care (01) ==
LOC: NFLDREF 07-23 05:57
PROVIDERS: PCP Physician Assistant Medical; Referring Provider Physician Assistant Medical; Visit Provider Physician Assistant Medical
DX: Z00.00 Encounter for general adult medical examination without abnormal findings (principal); E04.1 Nontoxic single thyroid nodule; D64.9 Anemia, unspecified; R25.2 Cramp and spasm; D68.61 Antiphospholipid syndrome; Z13.6 Encounter for screening for cardiovascular disorders
CPT/HCPCS: 80053; 80061; 82306; 84443

== ENCOUNTER 2023-07-29 16:19 | Outpatient (CLI) | payer OTHER, SELFPAY ==
--- OUTSIDE RECORDS SUMMARY | 2023-07-29 16:21 | XMS_ITS | Encounter Summary ---
Author Name Unknown Organization [place] Address [address] [place] [address]. [place] [address] Care Team Providers Care Social Sciences Research Scientist Name Role Phone Kelly Hercules MD Primary Care Provider Kelly Hercules MD Unavailable [phone] Lucy Luis MD Unavailable [phone] Kelly Hercules MD Unavailable Dior Loya OD Unavailable Kelly Hercules MD Unavailable [phone] Reason for Visit * Reason Onset Date Comments MyChart Communication 12/09/2019 Encounter Details Date Type Department Care Team (Late st Contact Info) Description 12/09/2019 [facility] Medical Advice [address], [address] [place] [address] [place] [address] [address], [place] [id number] MyChart Communication Social History Tobacco Use Types [...] documented as of this encounter Care Teams Social Sciences Research Scientist Relationship Specialty Start Date End Date Kelly Hercules MD PCP - General Family Practice 11/04/15 [place] [address] [address] [address] Assigned PCP 05/05/20 05/29/22 Lucy Luis MD [address] [place] [address] 200 [place] [address] Assigned Endocrinology Provider 04/05/20 12/14/20 [place] [address] [address] [address] Assigned PCP 05/28/19 05/04/20 Dior Loya OD 3305 [facility] L[place] [address] Assigned Surgical Provider 05/04/21 [place] [address] [address] [place] [address] Assigned PCP 08/08/22 04/30/23 documented as of this encounter
--- OUTSIDE RECORDS SUMMARY | 2023-07-29 16:21 | XMS_ITS | Clinical Summary ---
Author Name Unknown Organization [place] Address [address] [place] [address] Care Team Providers Care Fisher Swordfish Name Role Phone Kelly Hercules MD Primary Care Provider Allergies Active Allergy Reactions Criticality Noted Date Comments Garlic 02/22/2018 Onion Garlic Stomach locks up and rash in between fingers Red Dye 11/04/2015 Red dye in benadryl Medications Medication Sig Dispensed Refills Start Date End Date Status UNABLE TO FIND MEDICATION NAME: guinean herbs 0 Active ferrous gluconate (FERGON) 324 [...] Comments Blood Pressure 151/102 06/28/2020 10:34 AM CATTLE STICKER Pulse 65 06/28/2020 10:34 AM CATTLE STICKER Temperature 36.3 ??C (97.4 ??F) 06/28/2020 1 0:34 AM CATTLE STICKER Respiratory Rate 16 06/28/2020 10:3 4 AM CATTLE STICKER Oxygen Saturation 100% 06/28/2020 10: 34 AM CATTLE STICKER Inhaled Oxygen Concentration - - Weight 71.2 kg (156 lb 14.4 oz) 020 10:38 AM CATTLE STICKER Height 168.9 cm (5' 6.5) 06/29/2019 9:36 AM CATTLE STICKER Body Mass Index 24.94 06/29/2019 9:36 AM CATTLE STICKER Plan of Treatment Health Maintenance Due Date [...] age to complete this topic Care Teams Fisher Swordfish Relationship Specialty Start Date End Date Kelly Hercules MD PCP - General Family Practice 11/04/15
--- OUTSIDE RECORDS SUMMARY | 2023-07-29 16:21 | XMS_ITS | Referral Summary ---
Author Name Unknown Organization [place] Address [address] [place] [address] Care Team Providers Care Pole Climber Name Role Phone Kelly Hercules MD Primary Care Provider Allergies Active Allergy Reactions Criticality Noted Date Comments Garlic 02/22/2018 Onion Garlic Stomach locks up and rash in between fingers Red Dye 11/04/2015 Red dye in benadryl Medications Medication Sig Dispensed Refills Start Date End Date Status UNABLE TO FIND MEDICATION NAME: south korean herbs 0 Active ferrous gluconate (FERGON) 324 [...] Comments Blood Pressure 151/102 06/28/2020 10:34 AM UTILITY MANAGER Pulse 65 06/28/2020 10:34 AM UTILITY MANAGER Temperature 36.3 ??C (97.4 ??F) 06/28/2020 1 0:34 AM UTILITY MANAGER Respiratory Rate 16 06/28/2020 10:3 4 AM UTILITY MANAGER Oxygen Saturation 100% 06/28/2020 10: 34 AM UTILITY MANAGER Inhaled Oxygen Concentration - - Weight 71.2 kg (156 lb 14.4 oz) 020 10:38 AM UTILITY MANAGER Height 168.9 cm (5' 6.5) 06/29/2019 9:36 AM UTILITY MANAGER Body Mass Index 24.94 06/29/2019 9:36 AM UTILITY MANAGER Plan of Treatment Not on file Care Teams Pole Climber Relationship Specialty Start Date End Date Kelly Hercules MD PCP - General Family Practice 11/04/15
--- OUTSIDE RECORDS SUMMARY | 2023-07-29 16:21 | XMS_ITS | Encounter Summary ---
Author Name Unknown Organization [place] Address [address] [place] [address] Care Team Providers Care Pediatric Rn Name Role Phone Kelly Hercules MD Primary Care Provider Laura Collins PA-C Unavailable Kelly Hercules MD Unavailable [phone] Lucy Luis MD Unavailable [phone] Kelly Hercules MD Unavailable [phone] Dior Loya OD Unavailable [phone] Kelly Hercules MD Unavailable [phone] Encounter Details Date Type Department Care Team (Late st Contact Info) Description 04/17/2019 MyC Medical Advice [facility] [address] [place] [phone] Venecia Kellogg, STAMPING OPERATOR CONTINUITY PERSON Social History Tobacco Use Types Packs/Day Years [...] documented as of this encounter Care Teams Pediatric Rn Relationship Specialty Start Date End Date Kelly Hercules MD PCP - General Family Practice 11/04/15 Laura Collins [place]-C [address] [place] [address] Assigned PCP 02/26/19 05/27/19 [place] [address] [address] [address] Assigned PCP 05/05/20 05/29/22 Lucy Luis MD [address] [place] [address] Assigned Endocrinology Provider 04/05/20 12/14/20 [place] [address] [address] [place] [address] Assigned PCP 05/28/19 05/04/20 Dior Loya OD [address]305 [facility] LANG [place] [address] Assigned Surgical Provider 05/04/21 [place] [address] [address] [address] Assigned PCP 08/08/22 04/30/23 documented as of this encounter
--- OUTSIDE RECORDS SUMMARY | 2023-07-29 16:22 | XMS_ITS | Encounter Summary ---
Author Name Unknown Organization [place] Address [address] [place] [address]. [place] [address] Care Team Providers Care Car Supplier Name Role Phone Kelly Hercules MD Primary Care Provider Laura Collins PA-C Unavailable Kelly Hercules MD Unavailable Lucy Luis MD Unavailable Klely Hercules MD Unavailable Dior Loya OD Unavailable Kelly Hercules MD Unavailable Reason for Referral * Consultation (Routine) - Closed Specialty Diagnoses / Procedures Referred By Susana t Referred To Contact Diagnoses Thyroid nodule Lauar Collins PA-C [address] [place] [address] [facility] 3305 [facility] [address] [place] [phone] Referral ID Status Reason Start Date Expiration Date Visits Re quested Visits Authorized [id number] Closed 03/21/2019 03/20/2020 1 1 Comments Your provider [facility] you [facility] [email or web address] Please be aware that coverage of these services is subject to the terms and limitations of your health insurance plan. Call member services at your health plan with any benefit or coverage questions. Please bring the following to your appointment: >> Any x-rays, CTs or MRIs which have been performed. Contact the facility where they were done to arrange for orange picker machine operator prior to your scheduled appointment. >> List of current medications >> This referral request >> Any documents/labs given to you for this referral Reason for Visit * Reason Onset Date Comments MyChart Communication 03/21/2019 Encounter Details Date Type Department Care Team (Latest Contact Info) Description 03/21/2019 [facility] [id number] [place] [phone] Laura Collins PA-C [id number] [place] [address] MyChart Communication Social History Tobacco Use Types [...] documented as of this encounter Care Teams Car Supplier Relationship Specialty Start Date End Date Kelly Hercules MD PCP - General Family Practice 11/04/15 Laura Collins PA-C [address] [place] [address] Assigned PCP 02/26/19 05/27/19 [place] [address] [place] [address] Assigned PCP 05/05/20 05/29/22 Lucy Luis MD [address] [address] Assigned Endocrinology Provider 04/05/20 12/14/20 [place] [address] [address] [address] Assigned PCP 05/28/19 05/04/20 Dior Loya OD 3305 [facility] L[place] [address] Assigned Surgical Provider 05/04/21 [place] [address] [address] [address] Assigned PCP 08/08/22 04/30/23 documented as of this encounter
--- OUTSIDE RECORDS SUMMARY | 2023-07-29 16:22 | XMS_ITS | Clinical Summary ---
Author Name Unknown Organization [facility] Address [place], [place] [address] Care Team Providers Care Lapel Baster Name Role Phone Pcp, No Primary Care [...] Comments Blood Pressure 125/72 07/11/2014 2:45 PM SPANISHER Pulse 68 07/11/2014 2:45 PM SPANISHER Temperature - - Respiratory Rate 16 10/21/2012 4:01 PM CDT Oxygen Saturation - - Inhaled Oxygen Concentration - - Weight 65.5 kg (144 lb 6.4 oz) 07/11/2014 2:45 P M SPANISHER Height - - Body Mass Index - [...] age to complete this topic Care Teams Lapel Baster Relationship Specialty Start Date End Date Pcp, No . PCP - General 10/05/12
--- OUTSIDE RECORDS SUMMARY | 2023-07-29 16:22 | XMS_ITS | Encounter Summary ---
Author Name Unknown Organization [place] Address [address] [place] [address] Care Team Providers Care Cost Estimating Manager Name Role Phone Kelly Hercules MD Primary Care Provider Kelly Hercules MD Unavailable [phone] Laura Collins PA-C Unavailable Kelly Hercules MD Unavailable [phone] Lucy Luis MD Unavailable Kelly Hercules MD Unavailable [phone] Dior Loya OD Unavailable Kelly Hercules MD Unavailable [phone] Encounter Details Date Type Department Care Team (Late st Contact Info) Description 02/16/2019 MyC Medical Advice [facility] [place] [address] [address] [place] [address] Meredith Thomason DO [address] [place] [address] Social History Tobacco Use Types Packs/Day Years [...] documented as of this encounter Care Teams Cost Estimating Manager Relationship Specialty Start Date End Date Kelly Hercules MD PCP - General Family Practice 11/04/15 [place] [address] [address] [address] Assigned PCP 10/17/15 02/25/19 Laura Collins PA-C [address] [address] [place] [address] Assigned PCP 02/26/19 05/27/19 [place] [address] [address] [address] Assigned PCP 05/05/20 05/29/22 Lucy Luis MD [address] [place] [address] Assigned Endocrinology Provider 04/05/20 12/14/20 [place] [address] [place] [address] Assigned PCP 05/28/19 05/04/20 Dior Loya OD 3305 [facility] LANG [place] [address] Assigned Surgical Provider 05/04/21 [place] [address] [address] [place] [address] Assigned PCP 08/08/22 04/30/23 documented as of this encounter
[2023-07-29 16:48] LABS: Lab Add On Test New Spec Needed
== END 2023-07-29 16:20 | disposition home or self-care (01) ==
PROVIDERS: PCP Physician Assistant Medical; Visit Provider Physician Assistant Medical
DX: R25.2 Cramp and spasm (principal)
CPT/HCPCS: 82607; 82728; 83735

== ENCOUNTER 2023-08-30 19:08 | Outpatient (CLI) | payer OTHER, SELFPAY | END 2023-08-30 19:09 | disposition home or self-care (01) | LOC: NFLDREF 19:09 | PROVIDERS: PCP Physician Assistant Medical; Visit Provider Obstetrics & Gynecology | DX: R35.0 Frequency of micturition (principal) | CPT/HCPCS: 87086 ==

== ENCOUNTER 2024-07-27 07:50 | Outpatient (CLI) | payer OTHER, SELFPAY | END 2024-07-27 07:51 | disposition home or self-care (01) | LOC: NFLDREF 07-29 03:04 | PROVIDERS: PCP Physician Assistant Medical; Referring Provider Physician Assistant Medical; Visit Provider Physician Assistant Medical | DX: D64.9 Anemia, unspecified (principal); E78.5 Hyperlipidemia, unspecified; E04.1 Nontoxic single thyroid nodule; Z13.1 Encounter for screening for diabetes mellitus; Z13.6 Encounter for screening for cardiovascular disorders; Z13.820 Encounter for screening for osteoporosis | CPT/HCPCS: 80053; 80061; 82306; 82728; 84443 ==

== ENCOUNTER 2024-09-28 13:23 | Outpatient (CLI) | payer OTHER, SELFPAY ==
--- NOTE | 2024-09-28 13:20 | CRLHL7_ITS ---
For Patients: As a result of the Century Cures Act, medical imaging exams and procedure reports are released immediately into your electronic medical record. You may view this report before your referring provider. If you have questions, please contact your health care provider. INDICATION: BILATERAL SCREENING MAMMOGRAM, ASYMPTOMATIC 53 Y/O FEMALE COMPARISON: 03/29/21, 04/14/18 TECHNIQUE: CC and MLO views were obtained. These mammographic images have been obtained using full-field digital technique. These mammographic images were interpreted with the benefit of computer aided detection and tomosynthesis. BREAST COMPOSITION: The breasts are heterogeneously dense, which may obscure small masses. FINDINGS: No suspicious findings. ASSESSMENT: BI-RADS 1 Negative RECOMMENDATION: Annual screening mammogram. A lay language report of this examination will be provided to the patient. Dictated by: Keshawn Sanchez MD @ 10/06/2024 13:07:20 (Electronically Signed)
== END 2024-09-28 13:24 | disposition home or self-care (01) ==
LOC: MAMMO 13:25
PROVIDERS: PCP Physician Assistant Medical; Visit Provider Physician Assistant Medical
DX: Z12.31 Encounter for screening mammogram for malignant neoplasm of breast (principal); R92.333 Mammographic heterogeneous density, bilateral breasts
CPT/HCPCS: 77063; 77067

== ENCOUNTER 2024-10-27 20:40 | Emergency (ER) | payer OTHER, SELFPAY ==
[2024-10-27 20:47] VITALS: BP 161/85; PULSE 68; RESP 16; TEMP 36.1; O2SAT 99; BMI 28.8
--- NOTE | 2024-10-27 21:03 | CRLHL7_ITS ---
For Patients: As a result of the Century Cures Act, medical imaging exams and procedure reports are released immediately into your electronic medical record. You may view this report before your referring provider. If you have questions, please contact your health care provider. INDICATION: Right calf pain for 1 day. TECHNIQUE: Ultrasound venous duplex right lower extremity. Real-time hoffman-scale (B mode 2D), color Doppler, and spectral Doppler imaging were performed with compression and augmentation. COMPARISON: None FINDINGS: Deep vein: The right common femoral, femoral, popliteal, and visualized calf veins are fully compressible, demonstrate normal color flow, and normal response to mechanical augmentation. The Duplex Doppler waveforms are normal in appearance. Superficial vein: The visualized greater saphenous and superficial veins of the leg and calf are unremarkable. Soft tissue: No masses or cysts are identified. No adenopathy is seen. IMPRESSION: 1. No sonographic evidence of acute deep venous thrombosis seen. Dictated by: Jalen Roberts MD @ 10/27/2024 22:28:33 (Electronically Signed)
--- NOTE | 2024-10-27 21:08 | ED_ITS ---
HPI - General Adult General Date Seen: 10/27/24 Chief complaint: Extremity Pain/Injury, Lower Stated complaint: possible blood Clote in right leg Time Seen by Provider: 10/27/24 20:42 History of Present Illness HPI narrative: Patient is a 54-year-old woman generally pretty healthy, does have a history of antiphospholipid syndrome, no prior history of DVT. She is maintained on estrogen patches for menopause symptoms. Today while biking she developed pain which is focal in the lower calf near the tendinous junction of the Achilles. It has been hurting ever since, it hurts to go up stairs, hurts with flexion extension of the foot. No swelling or bruising. She does feel like the veins in the front of her legs are more prominent than usual. She is concerned about possible blood clot. Related Data Home Medications ?Medication ?Instructions ?Recorded ?Confirmed cholecalciferol (vitamin D3) 125 125 mcg PO QDAY 08/30/23 08/03/24 mcg (5,000 unit) capsule (Dialyvite Vitamin D) magnesium 250 mg tablet 250 mg PO QDAY 08/30/23 08/03/24 omega 3-lnq-buj-fish oil 1,000 mg 1 cap PO QDAY 08/03/24 08/03/24 (120 mg-180 mg) capsule (Fish Oil) Previous Rx's ?Medication ?Instructions ?Recorded estradiol 0.01% (0.1 mg/gram) 0.5 g vaginal 2XW #42.5 grams 08/30/23 vaginal cream (Estrace) estradiol 0.0375 mg/24 hr 1 patch transdermal 2XW #24 ea 10/26/24 semiweekly transdermal patch (Vivelle-Dot) Allergies Allergy/AdvReac Type Severity Reaction Status Date / Time amoxicillin Allergy Unknown Verified 08/03/24 13:04 onion Allergy Hives Verified 08/03/24 13:04 red dye Allergy Rash Verified 08/03/24 13:04 [facility] Medical History Hx of herpes genitalis ?Z86.19 - Personal history of other infectious and parasitic diseases (ICD- 10) History of HPV infection ?Z86.19 - Personal history of other infectious and parasitic diseases (ICD- 10) Anemia ?D64.9 - Anemia, unspecified (ICD-10) Anxiety ?F41.9 - Anxiety disorder, unspecified (ICD-10) Depression ?F32.A - Depression, unspecified (ICD-10) History of miscarriage ?Z87.59 - Personal history of other complications of , childbirth and the puerperium (ICD-10) Uterine leiomyoma (11/12/15) ?D25.9 - Leiomyoma of uterus, unspecified (ICD-10) History of thyroid nodule (03/02/19) ?Z86.39 - Personal history of other endocrine, nutritional and metabolic disease (ICD-10) History of palpitations ?Z87.898 - Personal history of other specified conditions (ICD-10) History of anxiety ?Z86.59 - Personal history of other mental and behavioral disorders (ICD-10) Surgical History S/P total abdominal hysterectomy ?Z90.710 - Acquired absence of both cervix and uterus (ICD-10) History of tympanostomy tube placement ?Z96.22 - Myringotomy tube(s) status (ICD-10) History of section ?Z98.891 - History of uterine scar from previous surgery (ICD-10) Family History Mother Drug dependence Bladder cancer Brother Drug dependence High blood pressure Father Suicide High blood pressure Paternal Grandfather Suicide Other Factor 5 Leiden mutation, heterozygous Social History Narrative: . Has 2 children. 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 Enjoys mountain biking in gravel biking. Also does yoga and hiking. Never smoker Drinks about 3 alcoholic beverages per week. Denies recreational drugs (Cannabis edibles) Smoking Status: Never smoker Do you use any of these nicotine containing products: None Second hand tobacco smoke exposure: No How often do you have a drink containing alcohol: 2-3 times a week Alcohol type: beer and hard liquor How many standard drinks containing alcohol do you have on a typical day: 1 or 2 How often do you have six or more drinks on one occasion: Never AUDIT-C Alcohol total score: 3 Non-prescribed substance use: other Non-prescribed substance use details: CBC, THC TINCTURE Caffeine: Yes (1 CUP DAILY) service: No Exam Narrative: Exam Narrative: Vital signs reviewed In general, alert, well-appearing woman. Breathing easily. Extremities: Examination of the right leg shows some varicosities and spider veins, she has focal tenderness in the right calf distally. There is no bruising tenderness or deformity. Distal CMS intact. Const: Vital Signs, click to edit/add: Vital Signs - 24 hr 10/27/24 20:47 Temperature 96.9 F L Pulse Rate [Left P ulse Oximeter] 68 Respiratory Rate 16 Blood Pressure [Ri ght Upper Arm] 161/85 H Pulse Oximetry 99 Oxygen Delivery Me thod Room Air Course Course ED Course: Overall low clinical suspicion for DVT, this started as well by Venkat santos and I suspected is musculoskeletal given her past medical history and hormone replacement will get an ultrasound to rule out DVT. Ultrasound is negative for DVT, discussed with patient. Conservative measures recommended, ice, relative rest. Gradual return to activities. Ibuprofen or Tylenol if needed. If not improving with conservative measures primary care follow-up, consider PT. Vital Signs Vital signs: Initial Vital Signs Temperature 96.9 F L 10/27/24 20:47 Temperature Source Temporal Artery Scan 10/27/24 20:47 Pulse Rate 68 10/27/24 20:47 Pulse Rhythm Regular 10/27/24 20:47 Respiratory Rate 16 10/27/24 20:47 Blood Pressure 161/85 H 10/27/24 20:47 Blood Pressure Mean 110 H 10/27/24 20:47 Blood Pressure Position Sitting 10/27/24 20:47 Pulse Oximetry 99 10/27/24 20:47 Oxygen Delivery Method Room Air 10/27/24 20:47 Vital Signs Temperature 96.9 F L 10/27/24 20:47 Pulse Rate 68 10/27/24 20:47 Respiratory Rate 16 10/27/24 20:47 Blood Pressure 161/85 H 10/27/24 20:47 Pulse Oximetry 99 10/27/24 20:47 Oxygen Delivery Method Room Air 10/27/24 20:47 Temperature 96.9 F L 10/27/24 20:47 Pulse Rate 68 10/27/24 20:47 Respiratory Rate 16 10/27/24 20:47 Blood Pressure 161/85 H 10/27/24 20:47 Pulse Oximetry 99 10/27/24 20:47 Oxygen Delivery Method Room Air 10/27/24 20:47 Medical Decision Making Imaging Data Venous US: Attestation: I have reviewed the pertinent imaging results. Radiologist's impression: Patient: Leslee Tinsley MR#: [id number] : 1970 Acct:[id number] Loc: ED Service Date: 10/27/[address]: Ordering Physician: Cindy Sood M.D. Date of Service: 10/27/24 Procedure(s): US venous LE RT Accession Number(s): [id number] cc: Cindy Sood M.D.; Meena BERMUDEZ~ For Patients: As a result of the Cures Act, medical imaging exams and procedure reports are released immediately into your electronic medical record. You may view this report before your referring provider. If you have questions, please contact your health care provider. INDICATION: Right calf pain for 1 day. TECHNIQUE: Ultrasound venous duplex right lower extremity. Real-time hoffman-scale (B mode 2D), color Doppler, and spectral Doppler imaging were performed with compression and augmentation. COMPARISON: None FINDINGS: Deep vein: The right common femoral, femoral, popliteal, and visualized calf veins are fully compressible, demonstrate normal color flow, and normal response to mechanical augmentation. The Duplex Doppler waveforms are normal in appearance. Superficial vein: The visualized greater saphenous and superficial veins of the leg and calf are unremarkable. Soft tissue: No masses or cysts are identified. No adenopathy is seen. IMPRESSION: 1. No sonographic evidence of acute deep venous thrombosis seen. Dictated by: Jalen Roberts MD @ 10/27/2024 22:28:33 Discharge Plan Discharge Clinical Impression: Pain of right calf, Antiphospholipid syndrome Patient Disposition: Home, Self-Care Condition: Stable Instructions: Leg Pain (ED) Additional Instructions: Ultrasound is negative for blood clot. I suspect these symptoms are musculoskeletal in origin. Okay to use ibuprofen or Tylenol if you need, otherwise, light activity over the next week or 2, I would not do any significant stretching until this is feeling better. After that, I have always found the centric calf strengthening exercises to be beneficial, gentle stretching. If not improving with conservative measures, consider PT. Prescriptions: No Action magnesium 250 mg tablet 250 mg PO QDAY cholecalciferol (vitamin D3) [Dialyvite Vitamin D] 125 mcg (5,000 unit) capsule 125 mcg PO QDAY estradiol [Estrace] 0.01 % (0.1 mg/gram) cream 0.5 g vaginal 2XW Qty: 42.5 3RF Rx Instructions: Use nightly for 2 weeks, then twice weekly. May apply with finger. omega 6-dsp-gwe-fish oil [Fish Oil] 1,000 (120-180) mg capsule 1 cap PO QDAY estradiol [Vivelle-Dot] 0.0375 mg/24 hr patch semiweekly 1 patch transdermal 2XW Qty: 24 0RF Rx Instructions: apply 1 patch for 3 days alternating with 1 patch for 4 days each week for 3 wks per 4-wk cycle Follow Up/Referrals: Meena Larson PA-C [Primary Care Provider] - Stand Alone Forms: MyHealth Info Instructions
--- OUTSIDE RECORDS SUMMARY | 2024-10-29 17:14 | XMS_ITS | Clinical Summary ---
Author Organization [facility] Address [address] [place] [address] Care Team Providers Care Plastic Maker Name Role Phone Kelly Hercules MD Primary Care Provider Allergies Active Allergy Reactions Criticality Noted Date Comments Garlic 02/22/2018 Onion Garlic Stomach locks up and rash in between fingers Red Dye #40 (Allura Red) 11/04/2015 Red dye in benadryl Medications UNABLE TO FIND MEDICATION NAME: [facility] herbs Active ferrous gluconate (FERGON) 324 (38 Fe) MG tabletIndicatio ns:Low ferritin Take 1 tablet (324 mg) by mouth 2 times daily (with meals) 60 tablet 5 0 Active Active Problems Problem Noted Date Diagnosed Date Thyroiditis 05/17/2020 Elevated glucose 05/17/2020 Uterine leiomyoma, unspecified location 05/17/20 20 Low ferritin 05/17/2020 Palpitations 05/17/2020 Thyroid nodule 06/13/2019 Diarrhea, unspecified type 02/22/2018 Pelvic pain in female 02/22/2018 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 Psoriasis 11/04/2015 Overview (11/04/2015): Hands, worse with citrus Immunizations Immunization Administration Dates Next Due Flu, Unspecified 03/25/2020 Influenza (IIV3) PF 03/26/2014 Influenza Vaccine >6 months,quad, PF 04/12/2019, 04/14/2018 TDAP Vaccine (Adacel) 02/22/2018 Family History Medical History Relation Comments Hypertension Brother 1 Alcoholism Father Suicide Father Suicide Maternal Grandfather Blood Disease Maternal Grandmother Factor 5 li claudia Colon Cancer Maternal Grandmother Blood Disease Maternal [...] School Help Needed Not on file 03/29 Comments No Sex and Gender Information Value Date Recorded Sex Assigned at Female 03/25/2021 6:57 AM CDT Legal Sex Female 3:51 AM CARDIAC CATH TECHNICIAN Gender Identity Female 03/25/2021 6:57 AM CDT Sexual Orientation Not on file 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 file Not o n file Last Filed Vital Signs Vital Sign Reading Time Taken Comments Blood Pressure 151/102 06/28/2020 10:34 AM CARDIAC CATH TECHNICIAN Pulse 65 06/28/2020 10:34 AM CARDIAC CATH TECHNICIAN Temperature 36.3 C (97.4 F) 06/28/2020 10:34 AM CARDIAC CATH TECHNICIAN Respiratory Rate 16 06/28/2020 10:3 4 AM CARDIAC CATH TECHNICIAN Oxygen Saturation 100% 06/28/2020 10: 34 AM CARDIAC CATH TECHNICIAN Inhaled Oxygen Concentration - - Weight 71.2 kg (156 lb 14.4 oz) 020 10:38 AM CARDIAC CATH TECHNICIAN Height 168.9 cm (5' 6.5) 06/29/2019 9:36 AM CARDIAC CATH TECHNICIAN Body Mass Index 24.94 06/29/2019 9:36 AM CARDIAC CATH TECHNICIAN Plan of Treatment Not on file Care Teams Plastic Maker Relationship Specialty Start Date End Date Kelly Hercules MD PCP - General Family Practice 11/04/15
--- OUTSIDE RECORDS SUMMARY | 2024-10-29 17:14 | XMS_ITS | Encounter Summary ---
Author Organization [facility] Address [address] [place] [address] Care Team Providers Care Sales Service Promoter Name Role Phone Kelly Hercules MD Primary Care Provider Kelly Hercules MD Unavailable [phone] Laura Collins PA-C Unavailable Kelly Hercules MD Unavailable [phone] Lucy Luis MD Unavailable [phone] Kelly Hercules MD Unavailable [phone] Dior Loya OD Unavailable [phone] Kelly Hercules MD Unavailable [phone] Encounter Details Date Type Department Care Team (Late st Contact Info) Description 02/16/2019 MyC Medical Advice [facility] [address] [place] [address] Meredith Thomason, DO [address] [place] [address] Social History Tobacco Use Types Packs/Day Years Used Date Smoking Tobacco: Former Smokeless Tobacco: Never Alcohol Use Standard Drinks/Week Comments Yes 0 (1 standard drink = 0.6 oz pur e alcohol) 2 glasses of wine per week PHQ-2 Answer Date Recorded PHQ-2 Score 0 01/03/2019 Comments No Sex and Gender Information Value Date Recorded Sex Assigned at Female 03/25/2021 6:57 AM CDT Legal Sex Female 3:51 AM CROSS ENTERPRISE 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 Gender Identity Female 03/25/2021 6:57 AM CDT Sexual Orientation Not on file 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 file Not o n file documented as of this encounter Plan of Treatment Not on file documented as of this encounter Visit Diagnoses Not on filedocumented in this encounter Additional Health Concerns Infection Onset Date Last Indicated Resolved Time Rule Out COVID-19 01/28/2020 01/28/2020 01/29/2020 9:31 PM CDT documented as of this encounter Care Teams Sales Service Promoter Relationship Specialty Start Date End Date Kelly Hercules MD PCP - General Family Practice 11/04/15 [place] [address] [place] [address] Assigned PCP 10/17/15 02/25/19 Laura Collins PA-C [address] [address] [place] [address] Assigned PCP 02/26/19 05/27/19 [place] [address] [address] [address] Assigned PCP 05/05/20 05/29/22 Lucy Luis MD [address] [place] [address] Assigned Endocrinology Provider 04/05/20 12/14/20 [place] [address] [address] [address] Assigned PCP 05/28/19 05/04/20 Dior Loya OD [address] [facility] [place] [address] Assigned Surgical Provider 05/04/21 [place] [address] [place] [address] Assigned PCP 08/08/22 04/30/23 documented as of this encounter
--- OUTSIDE RECORDS SUMMARY | 2024-10-29 17:14 | XMS_ITS | Clinical Summary ---
Author Organization [employer] [facility] Address [address] [place] [address] Care Team Providers Care Disability Aide Name Role Phone Pcp, No Primary Care Provider Unavailabl e Allergies No known active allergies Medications diclofenac (VOLTAREN) 75 mg delayed-release tabletIndicatio ns:Menorrhagia Take 1 tablet by mouth 2 times daily with meals. As needed for menstrual cramps 60 tablet 0 5 Active Active Problems Problem Noted Date Diagnosed Date Antiphospholipid antibody syndrome 07/11/2014 Social History Tobacco Use Types Packs/Day Years Used Date Smoking Tobacco: Never Smokeless Tobacco: Never Alcohol Use Standard Drinks/Week Comments Yes 0 (1 standard drink = 0.6 oz pur e alcohol) Comments No Sex and Gender Information Value Date Recorded Sex Assigned at Not on file Legal Sex Female 6:23 AM MACHINING AND ASSEMBLY SUPERVISOR Gender Identity Not on file Sexual Orientation Not on file Obstetrics History Last Filed Vital Signs Vital Sign Reading Time Taken Comments Blood Pressure 125/72 07/11/2014 2:45 PM MACHINING AND ASSEMBLY SUPERVISOR Pulse 68 07/11/2014 2:45 PM MACHINING AND ASSEMBLY SUPERVISOR Temperature - - Respiratory Rate 16 10/21/2012 4:01 PM CDT Oxygen Saturation - - Inhaled Oxygen Concentration - - Weight 65.5 kg (144 lb 6.4 oz) 07/11/2014 2:45 P M MACHINING AND ASSEMBLY SUPERVISOR Height - - Body Mass Index - - Plan of Treatment Health Maintenance Due Date Last Done Comments Tdap 10/24/1982 Depression screening for age 12+ 1983 HIV for age 15-65 10/24/1986 BMI (ht and wt on same day) for age 18+ 10/24/1989 Hepatitis C screening for age 18-79 10/24/1989 Tetanus booster 1991 Colonoscopy through age 75 10/24/2016 Mammogram for age 45-75 10/24/2016 Lipids for age 45-75 10/22/2017 10/22/2012 Pneumococcal series for age 50+ (1 of 1 - PCV) 10/24/2021 Zoster (shingles) series for age 50+ (1 of 2) 10/24/2021 COVID-19 vaccine series (1 - 2023- season) 2024 Influenza Vaccine (Season Ended) 2025 Pap test for age 21-65 03/19/2025 03/19/2022, 2021 Procedures Procedure Name Priority Date/Time Associated Diagnosis Comments HPV HIGH RISK Routine 03/19/2022 3:35 PM CDT LIPID PANEL W REFLEX MEASURED LDL Routine 10/22/2012 9:49 AM CDT Screening cholesterol level from Last 3 Months or Most Recently Relevant to Health Maintenance Results * HPV HIGH RISK (03/19/2022 3:35 PM CDT) TYPE 16 Negative Negative 03/24/2022 2:58 PM CDT [facility] TYPE 18 Negative Negative 03/24/2022 2:58 PM CDT [facility] OTHER HIGH RISK TYPES Negative Negative 03/24/2022 2:58 PM CDT [facility] Other (Cervical) 03/19/2022 3:35 PM CDT 03/23/2022 10:26 AM CDT Narrative [facility] - 03/24/2022 2:58 PM CDT HPV types 16, 18, 31, 33, 35, 39, 45, 51, 52, 56, 58, 59, 66 and 68 DNA were undetectable or below the pre-set threshold. Methodology: Meli Dwight 4800 HPV Test us Felicitas Sandy MD MICROBIOLOGY Fi nal Result [facility] [address] [place] [address], * LIPID PANEL W REFLEX MEASURED LDL (10/22/2012 9:49 AM CDT) CHOLESTEROL,TOTAL 173 100 - 199 mg/dL 10/24/2012 10:15 AM CDT [facility] TRIGLYCERIDES 44 <150 mg/dL 10/24/2012 10:15 AM CDT [facility] HDL CHOLESTEROL 70 >40 mg/dL 3 10:15 AM CDT [facility] NON-HDL CHOLESTEROL 103 <145 mg/dl 10/24/2012 10:15 AM T [facility] CHOL/HDL RATIO 2.47 <4.50 10/24/2012 10:15 AM T [facility] LDL CHOLESTEROL 94 <=130 mg/dL 10/24/2012 10:15 AM T [facility] PATIENT STATUS FASTING 10/24/2012 10:15 AM T [facility] Blood specimen (specimen) BLOOD SPECIMEN / Unknown 10/22/2012 9:49 AM CDT 10/22/2012 9:49 AM CDT Beatrice Almonte NP CHEMISTRY Final Result [facility] [address] [place] [address] from Last 3 Months or Most Recently Relevant to Health Maintenance Care Teams Disability Aide Relationship Specialty Start Date End Date Pcp, No . PCP - General 10/05/12
--- OUTSIDE RECORDS SUMMARY | 2024-10-29 17:14 | XMS_ITS | Encounter Summary ---
Author Organization [facility] Address [address] [place] [address]. [place] [address] Care Team Providers Care Cull Grader Name Role Phone Kelly Hercules MD Primary Care Provider Laura Collins PA-C Unavailable Kelly Hercules MD Unavailable [phone] Lucy Luis MD Unavailable [phone] Kelly Hercules MD Unavailable [phone] Dior Loya OD Unavailable [phone] Kelly Hercules MD Unavailable [phone] Reason for Referral * Consultation (Routine) - Closed Specialty Diagnoses / Procedures Referred By Susana flores Referred To Contact Diagnoses Thyroid nodule Laura Collins PA-C [address] [place] [address] Phone: tel: fax: [address] [address] Phone: tel: fax: Referral ID Status Reason Start Date Expiration Date Visits Re quested Visits Authorized [id number] Closed 03/21/2019 03/20/2020 1 1 Comments Your provider has referred you to: [facility]: [facility] [email or web address] Please be aware that coverage of these services is subject to the terms and limitations of your health insurance plan. Call member services at your health plan with any benefit or coverage questions. Please bring the following to your appointment: >> Any x-rays, CTs or MRIs which have been performed. Contact the facility where they were done to arrange for pepper picker prior to your scheduled appointment. 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 Gender Identity Female 03/25/2021 6:57 AM CDT Sexual Orientation Not on file 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 file Not o n file documented as of this encounter Miscellaneous [...] documented as of this encounter Care Teams Cull Grader Relationship Specialty Start Date End Date Kelly Hercules MD PCP - General Family Practice 11/04/15 Laura Collins PA-C [address] [place] [address] Assigned PCP 02/26/19 05/27/19 [place] [address] [place] [address] Assigned PCP 05/05/20 05/29/22 Lucy uLis MD [address] [facility] [address] [place] [address] Assigned Endocrinology Provider 04/05/20 12/14/20 [place] [address] [place] [address] Assigned PCP 05/28/19 05/04/20 Dior Loya OD [address] [facility] [place] [address] Assigned Surgical Provider 05/04/21 [place] [address] [address] [address] Assigned PCP 08/08/22 04/30/23 documented as of this encounter
--- OUTSIDE RECORDS SUMMARY | 2024-10-29 17:14 | XMS_ITS | Encounter Summary ---
Author Organization [facility] Address [address] [place] [address] Care Team Providers Care Material Handling Supervisor Name Role Phone Kelly Hercules MD Primary Care Provider Laura Collins PA-C Unavailable Kelly Hercules MD Unavailable [phone] Lucy Luis MD Unavailable [phone] Kelly Hercules MD Unavailable [phone] Dior Loya OD Unavailable [phone] Kelly Hercules MD Unavailable [phone] Encounter Details Date Type Department Care Team (Late st Contact Info) Description 04/17/2019 MyC Medical Advice [address] [address] Venecia Kellogg, HEALTH AND SAFETY CONSULTANT [facility] [address] [place] [address] [address] [place] [address] Social History Tobacco Use Types Packs/Day Years [...] AM CDT Legal Sex Female 3:51 AM DRAMATIC TEACHER Gender Identity Female 03/25/2021 6:57 AM CDT [...] documented as of this encounter Care Teams Material Handling Supervisor Relationship Specialty Start Date End Date Kelly Hercules MD PCP - General Family Practice 11/04/15 Laura Collins PA-C [address] [place] [address] Assigned PCP 02/26/19 05/27/19 [place] [address] [address] [place] [address] Assigned PCP 05/05/20 05/29/22 Lucy Luis MD [address] [address] [place] [address] Assigned Endocrinology Provider 04/05/20 12/14/20 [place] [address] [address] [place] [address] Assigned PCP 05/28/19 05/04/20 Dior Loya OD [address] [facility] [place] [address] Assigned Surgical Provider 05/04/21 [place] [address] [address] [place] [address] Assigned PCP 08/08/22 04/30/23 documented as of this encounter
--- OUTSIDE RECORDS SUMMARY | 2024-10-29 17:14 | XMS_ITS | Encounter Summary ---
Author Organization [facility] Address [address] [place] [address]. [place] [address] Care Team Providers Care Physical Metallurgist Name Role Phone Kelly Hercules MD Primary Care Provider Kelly Hercules MD Unavailable [phone] Lucy Luis MD Unavailable [phone] Kelly Hercules MD Unavailable [phone] Dior Loya OD Unavailable [phone] Kelly Hercules MD Unavailable [phone] Reason for Visit * Reason Onset Date Comments MyChart Communication 12/09/2019 Encounter Details Date Type Department Care Team (Late st Contact Info) Description 12/09/2019 MyC Medical Advice [address], [address] [place] [address] [place] [address] [place] [address] MyChart Communication Social History Tobacco Use Types Packs/Day Years Used Date Smoking Tobacco: Former Smokeless Tobacco: Never Alcohol Use Standard Drinks/Week Comments Yes 0 (1 standard drink = 0.6 oz pur e alcohol) 2 glasses of wine per week PHQ-2 Answer Date Recorded PHQ-2 Score 0 05/31/2019 Comments No Sex and Gender Information Value Date Recorded Sex Assigned at Female 03/25/2021 6:57 AM CDT 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 Gender Identity Female 03/25/2021 6:57 AM CDT [...] documented as of this encounter Care Teams Physical Metallurgist Relationship Specialty Start Date End Date Kelly Hercules MD PCP - General Family Practice 11/04/15 [place] [address] [address] [place] [address] Assigned PCP 05/05/20 05/29/22 Lucy Luis MD [address] [address] [place] [address] Assigned Endocrinology Provider 04/05/20 12/14/20 [place] [address] [address] [place] [address] Assigned PCP 05/28/19 05/04/20 Dior Loya OD [address] [facility] [place] [address] Assigned Surgical Provider 05/04/21 [place] [address] [address] [place] [address] Assigned PCP 08/08/22 04/30/23 documented as of this encounter
== END 2024-10-27 22:26 | disposition home or self-care (01) ==
PROVIDERS: Emergency Provider Emergency Medicine; PCP Physician Assistant Medical
DX: M79.661 Pain in right lower leg (principal); D68.61 Antiphospholipid syndrome
CPT/HCPCS: 93971; 99284

== ENCOUNTER 2024-12-28 09:23 | Outpatient (CLI) | payer OTHER, SELFPAY | END 2024-12-28 09:24 | disposition home or self-care (01) | LOC: NFLDREF 09:28 | PROVIDERS: PCP Physician Assistant Medical; Visit Provider Obstetrics & Gynecology | DX: F52.0 Hypoactive sexual desire disorder (principal) | CPT/HCPCS: 84403 ==